=== PATIENT | female | born 1950 | race Caucasian/White ===

== ENCOUNTER 2019-10-21 08:56 | Emergency (ER) | payer OTHER ==
[~2019-10-21] VITALS: Ht 152.4 cm; Wt 69.1 kg
[2019-10-21 09:01] VITALS: Ht 152.4 cm; Wt 69.1 kg
[2019-10-21] MEDS ORDERED: NITROSTAT0.4 MG (09:05)
[2019-10-21] MEDS ORDERED: HYDROCODON-ACE1 EAC7 PO (09:05)
[2019-10-21] MEDS ORDERED: LISINOPRIL40 MG PO (09:17)
[2019-10-21] MEDS ORDERED: ZOLOFT100 MG PO (09:17)
[2019-10-21] MEDS ORDERED: ISOSORBIDE MONO20 MG PO (09:17)
[2019-10-21] MEDS ORDERED: ZANAFLEX4 MG PO (09:17)
[2019-10-21] MEDS ORDERED: TRAZODONE HCL150 MG PO (09:18)
[2019-10-21] MEDS ORDERED: LIPITOR40 MG PO (09:18)
[2019-10-21] MEDS ORDERED: VOLTAREN75 MG PO (09:19)
[2019-10-21 09:21] LABS: BASOPHILS 0.2 % (0-2); EOSINOPHILS 0.1 % (0-7); HEMATOCRIT 34.1 % (36.0-48.0); IMMATURE GRANULOCYTES 0.5 % (0-5); MCH 28.5 pg (26.0-34.0); MCHC 32.3 g/dL (31.0-37.0); MCV 88.3 fL (80.0-100.0); MEAN PLATELET VOLUME 9.5 fL (7.4-10.4); NEUTROPHILS 83.2 % (40-80); PLATELET COUNT 266 10x3/uL (130-400); RBC 3.86 10x6/uL (4.00-5.40); RDW 13.9 % (11.5-14.5); WBC 8.2 10x3/uL (4.8-10.8)
[2019-10-21 09:33] LABS: APTT 42.5 SECONDS (22.8-39.4); INR 0.98 (0.85-1.17)
[2019-10-21 09:51] LABS: CALC OSMOLALITY 276 mosm/kg (275-300); CALCIUM 8.2 mg/dL (8.5-10.1); CARBON DIOXIDE 22.6 mmol/L (21.0-32.0); CHLORIDE - SERUM 104 mmol/L (98-107); CREATININE - SERUM 0.7 mg/dL (0.6-1.3); GLUCOSE 103 mg/dL (74-106); POTASSIUM - SERUM 3.5 mmol/L (3.5-5.1); SODIUM 137 mmol/L (136-145); UREA NITROGEN 20 mg/dL (7-18); eGFR NON AFRICAN AMERICAN 88 mL/min (90-120)
[2019-10-21 10:09] LABS: ALBUMIN 3.7 g/dL (3.4-5.0); ALKALINE PHOSPHATASE 81 U/L (30-120); ALT (SGPT) 14 U/L (10-68); BILIRUBIN - TOTAL 0.41 mg/dL (0.2-1.3); CKMB 0.5 U/L (0.0-3.6); CREATINE KINASE 62 UL (21-215); MAGNESIUM - SERUM 2.1 mg/dL (1.8-2.4); PROTEIN - SERUM 6.7 g/dL (6.4-8.2); TROPONIN-I < 0.017 ng/mL (0.000-0.060)
[2019-10-21] MEDS ORDERED: LIDODERM 5 %1 PATCH TRANSDERM (10:37)
[2019-10-21] MEDS ORDERED: PREDNISONE50 MG PO (10:37)
[2019-10-21] MEDS ORDERED: VALTREX1000 MG PO (10:37)
[2019-10-21 13:38] VITALS: BP 178/68
== END 2019-10-21 13:38 | disposition home or self-care (01) ==
LOC: D.ER 08:56
PROVIDERS: Family Medicine
DX: B02.9 Zoster without complications (principal); R07.9 Chest pain, unspecified; M54.9 Dorsalgia, unspecified; I10 Essential (primary) hypertension; Z72.0 Tobacco use